=== PATIENT | male | born 1955 | race Caucasian/White ===

== ENCOUNTER 2020-11-28 15:57 | Emergency (ER) | payer OTHER, SELFPAY ==
--- NOTE | ~2020-11-28 | XR_ITS ---
EXAMINATION: X-RAY LEFT WRIST CLINICAL INFORMATION: Pain, status post fall COMPARISON: None TECHNIQUE: 3 views FINDINGS: No visible acute fracture or dislocation. Arthritic changes present. 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 Arthritic changes in the IP joints of the fingers. XR/XR hand wrist LT IMPRESSION: No radiographically evident discrete acute fracture. 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
--- NOTE | ~2020-11-28 | CT_ITS ---
EXAMINATION: CT CHEST WITHOUT CONTRAST CLINICAL INFORMATION: Exam s/p fall with left anterior upper ribcage pain . COMPARISON: No pertinent prior studies are available for comparison. TECHNIQUE: Multidetector volumetric imaging was performed from the thoracic inlet through the lung bases without contrast. Sagittal and coronal reformatted images were obtained on the technologist workstation. Soft tissue and lung algorithms evaluated. Thick slab MIP images were performed to increase nodule conspicuity. This CT examination was performed using dose optimization techniques as appropriate, variously including the following: *Automated exposure control *Adjustment of mA and/or kV according to patient size (this includes techniques or standardized protocols for targeted exams where dose is matched to indication/reason for exam; i.e. extremities or head) *Use of iterative reconstruction technique DLP: 456 mGy-cm. FINDINGS: LUNG: Linear scarring or atelectasis at the bases. Probable subpleural lymph nodes along the right minor fissure. No suspicious pulmonary nodule or consolidation. Central airways are unremarkable MEDIASTINUM: Prominent vascular calcification within the coronary vessels. No bulky hilar or mediastinal adenopathy. Central airways unremarkable PERICARDIUM/PLEURA: No significant effusion. No pleural mass or thickening. THYROID/VISUALIZED LOWER NECK: Unremarkable. CHEST WALL/AXILLA: I do not appreciate any displaced rib fractures. There is likely artifact along the lateral aspect of the left ninth rib rather than a nondisplaced rib fracture in this location. Multilevel degenerative changes in the spine VISUALIZED UPPER ABDOMEN: Mild diffuse fatty infiltration the liver. CT/CT chest wo con IMPRESSION: No displaced rib fracture seen. Slight irregularity along the lateral ninth rib is more likely artifactual rather than a subtle nondisplaced fracture. There is elevation left hemidiaphragm with atelectatic changes at the left base..
--- NOTE | ~2020-11-28 | CT_ITS ---
CT HEAD WITHOUT IV CONTRAST CT CERVICAL SPINE WITHOUT IV CONTRAST CT MAXILLOFACIAL WITHOUT IV CONTRAST INDICATION: Fall COMPARISON: None TECHNIQUE: Multidetector CT acquisitions of the head, maxillofacial region, and cervical spine were obtained without IV contrast. Multiplanar reformats were acquired and utilized for image interpretation. This CT examination was performed using dose optimization techniques as appropriate, variously including the following: *Automated exposure control *Adjustment of mA and/or kV according to patient size (this includes techniques or standardized protocols for targeted exams where dose is matched to indication/reason for exam; i.e. extremities or head) *Use of iterative reconstruction technique DLP: 562 mGy-cm FINDINGS: HEAD: There is no intracranial hemorrhage or extra-axial fluid collection. The ventricles are unremarkable without hydrocephalus. No midline shift or mass effect. Forrester to white matter differentiation is diffusely maintained without evidence of an evolved acute territorial infarct. The basilar cisterns are preserved. Subcortical and periventricular white matter hypoattenuation is suggestive of [] small vessel ischemic disease. No soft tissue or osseous abnormality. The mastoid air cells and paranasal sinuses are well-aerated. MAXILLOFACIAL: The mandible, maxilla, pterygoid plates, nasal bones, zygomatic arches, paranasal sinus drake, and bony orbits are intact. No acute osseous abnormality within the maxillofacial region. The paranasal sinuses and mastoid air cells remain well-aerated. The globes and extra-ocular musculature is intact. No significant soft tissue findings. CERVICAL SPIN Advanced spondylosis of marked degenerative disc disease changes most notable at C5-C6 to see C7-T1. Posterior elements intact. Notable straightening of the cervical spine noted. There is anatomic alignment of the vertebral bodies and posterior elements. There is no acute fracture and there is no acute subluxation. The craniocervical and atlantoaxial articulations are normal. There is no prevertebral soft tissue swelling. No significant soft tissue abnormality within the neck. The visualized lung apices are clear. CT/CT cervical spine wo con IMPRESSION: 1. No acute intracranial abnormality. 2. No acute osseous abnormality within the cervical spine. 3. No acute osseous abnormality within the maxillofacial region. 4. Advanced spondylosis cervical spine.
[2020-11-28 15:59] VITALS: BP 128/63; PULSE 90; RESP 16; TEMP 36.7; O2SAT 98; BMI 35.4
--- NOTE | 2020-11-28 19:36 | ECG_ITS ---
Test Reason : FALL Blood Pressure : / mmHG Vent. Rate : 086 BPM Atrial Rate : 086 BPM P-R Int : 000 ms QRS Dur : 084 ms QT Int : 356 ms P-R-T Axes : 000 016 046 degrees QTc Int : 426 ms Normal sinus rhythm Normal ECG No previous ECGs available Referred By: Elke Cruz Electronically Signed By:Sagar Clancy
[2020-11-28] MEDS: Acetaminophen 325 MG TABLET 975 MG PO (19:49)
--- NOTE | 2020-11-28 19:50 | PC.NURSE ---
Pt medicated with Tylenol. Aware of plan for EKG and CT. Pt resting in POC, sitting upright on the side of the bed. Continue to monitor.
--- NOTE | 2020-11-28 19:56 | PC.NURSE ---
EKG obtained by this RN. Pt ambulating to CT at this time.
[2020-11-28 20:16] VITALS: BP 153/73; PULSE 88; RESP 18; TEMP 36.5; O2SAT 96
--- NOTE | 2020-11-28 20:19 | PC.NURSE ---
Pt returns from CT. VSS at this time, awaiting results.
--- NOTE | 2020-11-28 20:42 | ED.FALL ---
HPI - Fall General Chief Complaint: Fall Stated Complaint: fall Time Seen by Provider: 11/28/20 19:29 Source: patient Mode of arrival: ambulatory Limitations: no limitations History of Present Illness HPI Narrative: 65-year-old male with a past medical history of hypertension, hyperlipidemia, diabetes, asthma and GERD not on any blood thinners presenting to the ED after mechanical fall when he was standing on a stage he states misstepped the fell approximately 6 ft onto the grass hitting his head/nose/anterior left chest wall and since then has been having pain. Denies loss of consciousness or prolonged down time. Denies any symptoms prior to the fall. 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) Fall from: from height (distance) (6 ft) Fall witnessed: no Place fall occurred: street Loss of consciousness: none Prolonged down time: no Symptoms prior to fall: none Location of injury: head, face, neck and chest Severity: mild Quality: aching Associated symptoms (after fall): denies Related Data Allergies Allergy/AdvReac Type Severity Reaction Status Date / Time No Known Allergies Allergy Verified 11/28/20 19:31 Review of Systems Review of Systems: Constitutional : No changes in activity, No lethargy, No recent prior head injury, No agitation, No increased fussiness ENT/Mouth : No Ear Pain, No Nasal discharge/drainage Eyes: No Eye Pain, No Swelling, No Redness, No Foreign Body, No Vision Changes Cardiovascular : No Chest Pain, No SOB Respiratory : No Cough Gastrointestinal : No Nausea, No Vomiting, No abdominal Pain Genitourinary : No Dysuria, No Urinary Frequency, No Urinary Incontinence, No Urgency, No Flank Pain Musculoskeletal : + joint pain, + Facial pain, + Neck pain, No neck stiffness, No back pain/injury Skin : No lacerations Neuro : No unsteady gait, No Paresthesias, No Loss of Consciousness, No altered mental status, No Headache Yes all other systems are reviewed and are negative [facility] Past Medical History Attestation statement: The following information was validated with the patient. Medical History Asthma Diabetes GERD (gastroesophageal reflux disease) HLD (hyperlipidemia) HTN (hypertension) Social History Social History Advance Directives: No Advance Directives Information Provided: No Physical Exam Vital Signs: Vital Signs: Last Vital Signs Temp 97.7 F 11/28/20 20:16 Pulse 88 11/28/20 20:16 Resp 18 11/28/20 20:16 BP 153/73 H 11/28/20 20:16 Pulse Ox 96 11/28/20 20:16 Body Mass Index 35.4 vital signs have been reviewed as normal and appeared to be correct. Blood pressure normal. Heart rate normal. Respiration rate normal. Temperature normal. Oxygen saturation normal. Appearance: Alert. Oriented X3. No acute distress. Head: Normal external exam. Normocephalic. Eyes: PERRLA. EOMI. Conjunctiva and sclera normal. Eyelids normal. ENT: To the bridge of the nose patient has mild tenderness to palpation with a superficial abrasion no active bleeding or obvious deformities. No septal hematomas noted. No hemotympanum is noted. Pharynx normal. Uvula midline. Moist mucous membranes. No trismus noted. No drooling noted. No muffled voice noted. No dental injury noted. Neck: Normal inspection. Neck supple. FROM. No adenopathy. No meningeal signs. CVS: Normal heart rate and rhythm. Heart sound normal. No murmurs noted. Pulses normal throughout. Respiratory: No respiratory distress. Painless inspiration. Breath sounds normal. No wheezes/rales/rhonchi noted. Chest nontender. No accessory muscle usage noted or decreased air movement noted. Abdomen: Soft and nontender. Nondistended. No guarding. No rigidity. Bowel sounds normal in all 4 quadrants. No distention noted. No organomegaly noted. No visible injury noted. No rebound tenderness. Negative Rovsing sign. Negative obturator's sign. Negative psoas sign. Negative Leung sign. No signs of trauma. Back: Full range of motion noted. No obvious deformities tenderness to palpation or abrasions noted. Skin: Skin warm and dry. Normal skin color. Normal skin turgor. No rashes/lesions/lacerations noted. Extremities: Extremities exhibit normal range of motion. Extremities nontender. Neuro: Oriented X 3. No motor deficit. No sensory deficit. Reflexes normal. Normal steady gait. Course Course Course Narrative: 65-year-old male with a mechanical fall from 6 ft landing prone hitting his left chest/nose denies any loss of consciousness or blood or being on any blood thinners. Denies prolonged down time. Denies any symptoms prior to the fall. Imaging obtained and negative for any acute processes. EKG is NSR ventricular rate of 86 with a normal NV interval normal QRS duration normal QT /QTC interval. No acute ischemic changes are noted. No prior EKGs to compare to at this time. Will DC home with symptomatic treatment for his return if any new or worsening symptoms follow-up with primary care provider. Patient understands agrees with this plan. MDM - Fall Medical Records Attestation: I reviewed the patient's medical records. Imaging Data Left hand/wrist x-ray: Attestation: I personally reviewed and interpreted this imaging study as follows: Radiologist's impression: FINDINGS: No visible acute fracture or dislocation. Arthritic changes present. 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 Arthritic changes in the IP joints of the fingers. XR/XR hand wrist LT IMPRESSION: No radiographically evident discrete acute fracture. 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 Chest CT : Attestation: I personally reviewed and interpreted this imaging study as follows: Radiologist's impression: FINDINGS: LUNG: Linear scarring or atelectasis at the bases. Probable subpleural lymph nodes along the right minor fissure. No suspicious pulmonary nodule or consolidation. Central airways are unremarkable MEDIASTINUM: Prominent vascular calcification within the coronary vessels. No bulky hilar or mediastinal adenopathy. Central airways unremarkable PERICARDIUM/PLEURA: No significant effusion. No pleural mass or thickening. THYROID/VISUALIZED LOWER NECK: Unremarkable. CHEST WALL/AXILLA: I do not appreciate any displaced rib fractures. There is likely artifact along the lateral aspect of the left ninth rib rather than a nondisplaced rib fracture in this location. Multilevel degenerative changes in the spine VISUALIZED UPPER ABDOMEN: Mild diffuse fatty infiltration the liver. CT/CT chest wo con IMPRESSION: No displaced rib fracture seen. Slight irregularity along the lateral ninth rib is more likely artifactual rather than a subtle nondisplaced fracture. There is elevation left hemidiaphragm with atelectatic changes at the left base.. CT scan of brain/facial/cervical spine: Attestation: I personally reviewed and interpreted this imaging study as follows: Radiologist's impression: HEAD: There is no intracranial hemorrhage or extra-axial fluid collection. The ventricles are unremarkable without hydrocephalus. No midline shift or mass effect. Forrester to white matter differentiation is diffusely maintained without evidence of an evolved acute territorial infarct. The basilar cisterns are preserved. Subcortical and periventricular white matter hypoattenuation is suggestive of [] small vessel ischemic disease. No soft tissue or osseous abnormality. The mastoid air cells and paranasal sinuses are well-aerated. MAXILLOFACIAL: The mandible, maxilla, pterygoid plates, nasal bones, zygomatic arches, paranasal sinus drake, and bony orbits are intact. No acute osseous abnormality within the maxillofacial region. The paranasal sinuses and mastoid air cells remain well-aerated. The globes and extra-ocular musculature is intact. No significant soft tissue findings. CERVICAL SPIN Advanced spondylosis of marked degenerative disc disease changes most notable at C5-C6 to see C7-T1. Posterior elements intact. Notable straightening of the cervical spine noted. There is anatomic alignment of the vertebral bodies and posterior elements. There is no acute fracture and there is no acute subluxation. The craniocervical and atlantoaxial articulations are normal. There is no prevertebral soft tissue swelling. No significant soft tissue abnormality within the neck. The visualized lung apices are clear. CT/CT facial bones wo con IMPRESSION: 1. No acute intracranial abnormality. 2. No acute osseous abnormality within the cervical spine. 3. No acute osseous abnormality within the maxillofacial region. 4. Advanced spondylosis cervical spine. ECG Data Attestation: I personally reviewed and interpreted this ECG as follows: ECG interpretation date: 11/28/20 ECG interpretation time: 19:55 Interpretation: Normal sinus rhythm with a ventricular lead of 86 with a normal NV interval normal QRS duration normal QT/QTC interval. No acute ischemic changes are noted. Discharge Plan Discharge Clinical Impression: Fall, Contusion of nose, Abrasion of nose, Cervical muscle strain, Chest wall muscle strain, Sprain and strain of left hand, Left wrist sprain Patient Disposition: Home, Self-Care Instructions: Muscle Strain (ED), Fall Prevention (ED) Referrals: Physician,Unknown [Primary Care Provider] - 1 day (your pcp)
== END 2020-11-28 21:22 | disposition home or self-care (01) ==
PROVIDERS: Emergency Provider Internal Medicine
DX: S16.1XXA Strain of muscle, fascia and tendon at neck level, initial encounter (principal); S66.912A Strain of unspecified muscle, fascia and tendon at wrist and hand level, left hand, initial encounter; S29.011A Strain of muscle and tendon of front wall of thorax, initial encounter; S21.102A Unspecified open wound of left front wall of thorax without penetration into thoracic cavity, initial encounter; S21.101A Unspecified open wound of right front wall of thorax without penetration into thoracic cavity, initial encounter; S00.31XA Abrasion of nose, initial encounter; S63.502A Unspecified sprain of left wrist, initial encounter; G44.309 Post-traumatic headache, unspecified, not intractable; W17.89XA Other fall from one level to another, initial encounter; Y93.9 Activity, unspecified; Y92.9 Unspecified place or not applicable; Y99.9 Unspecified external cause status; Z79.899 Other long term (current) drug therapy
CPT/HCPCS: 70450; 70486; 71250; 72125; 73110; 73130; 93005; 99284